=== PATIENT | female | born 1955 | race Caucasian/White ===

== ENCOUNTER → 2017-07-24 09:04 | Outpatient (CLI) | payer OTHER, SELFPAY ==
[2017-07-24 10:33] LABS: Anion Gap 8 (5-15); BUN 17 mg/dL (7-18); BUN/Creat Ratio 26.9 RATIO (10-20); Calcium,Total 9.2 mg/dL (8.5-10.1); Chloride 107 mmol/L (98-107); Creatinine, Serum 0.63 mg/dL (0.55-1.02); EST Glomerular Filtration Rate 102 mL/min (>60); Est Glom Filt Rate - Afr Amer 124 mL/min (>60); Glucose 111 mg/dL (74-106); Potassium 4.2 mmol/L (3.5-5.1); Sodium Level 143 mmol/L (136-145)
== END ==
PROVIDERS: Family Provider Family Medicine; PCP Family Medicine; Visit Provider Family Medicine
DX: E11.9 Type 2 diabetes mellitus without complications (principal)
CPT/HCPCS: 36415; 80048

== ENCOUNTER → 2018-04-01 10:01 | Outpatient (CLI) | payer OTHER, SELFPAY ==
--- NOTE | 2018-04-01 10:04 | BI_ITS ---
MAMMOGRAPHY - BILATERAL SCREENING REASON FOR EXAM: Female, 62 years old. Routine annual screening examination. PERTINENT HISTORY: Aunt with breast cancer. Prior bilateral stereotactic breast biopsies. TECHNIQUE: Digital bilateral breast cr (3D mammographic acquisition) in the CC and MLO projections. 2-D mediolateral oblique (MLO) and craniocaudad (CC) views of both breasts were obtained. CAD: Full Field Digital Mammography with Computer Added Detection was performed. COMPARISON: Comparison is made with prior examination dated April 16, 2016 and March 21, 2015. FINDINGS: Breast Composition: The breasts are heterogeneously dense, which may obscure small masses. There are no dominant masses or suspicious calcifications. Once again, 2 tissue markers are seen in the axillary region of the left breast. Stable scattered bilateral calcifications. No other significant abnormalities are identified. There has been no significant change since the prior study. BI/SCREENING MAMM (CAD), BILAT IMPRESSION: Stable bilateral screening mammogram. Yearly follow-up mammogram recommended. (A) ASSESSMENT CATEGORY: BIRADS Category 2: Benign. A letter regarding these results will be sent to the patient by the facility within 30 days. Approximately 10% of breast cancers are not detected by mammography. A normal mammogram should not delay biopsy of a clinically suspicious abnormality. [id number] Electronically Signed: Brandon Echeverria MD at 11:25 EST Tel [phone], Service support ,
== END ==
PROVIDERS: Family Provider Family Medicine; PCP Family Medicine; Referring Provider Family Medicine; Visit Provider Family Medicine
DX: Z12.31 Encounter for screening mammogram for malignant neoplasm of breast (principal)
CPT/HCPCS: 77063; 77067

== ENCOUNTER 2018-04-02 10:00 | Outpatient (RCR) | payer OTHER, SELFPAY ==
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
--- NOTE | 2018-02-13 10:57 | HP.PTREVAL_ITS ---
LELAND MANDEL, It has been my pleasure to treat BRIAN GRIFFIN over the last 10 visits for R femur fracture. Please see the progress note below for an update on the physical therapy plan of care! Subjective: Saw doctor and they are happy. New script for WBAT and gait training. Will f/u again 03/25. Pain level is 1/10 intermittently in medial and lateral R knee. Sleeping OK but hard to get back to sleep. Moved up stairs to real bedroom, going up stairs is OK with rail, down is nervous. Objective/Function: 0-94 AROM and 95 AAROM. Safe but slow gait with short L step length without AD and weakness apparent R hip. With cane walks well btu L step length still tends to be short. Strength in hip R tested at 4/5 and knee flexion 4- with no pain and knee extension 4- with pain. Tender adn tight over ITB. Unable to do steps with R LE still. OVERALL MUCH IMPROVEMENT AND TOLERATING INCREASED WB EX EXCELLENT. GOOD PROGNOSIS FOR CONTINUED IMPROVEMENT. Plan Plan: continue 3x/week for 4 weeks. 1. rollout/STM and stretch R ITB and continued knee flexion ROM. 2. Gait with cane and without cane as she is WBAT now. 3. strength progression R LE machines and functional to the steps as able. 4. ice if needed. Goals Goal 1:: 0-110 AROM R knee without increased pain Goal Time Frame: 4-6 Weeks Goal Progress: Progressing, approp. Goal 2:: Steps as allowed by WB status mod I. Goal Time Frame: 2-4 Weeks Goal Progress: with walker only. Goal 3:: Walk with cane without gait deviations in community safely adn confidently as allowed by WB status Goal Time Frame: 6-8 Weeks Goal Progress: Progressing Goal 4:: Pt feel 75% back to normal activity Goal Time Frame: 8-12 Weeks Goal 5:: Resume housework as tolerated Goal Time Frame: 4-6 Weeks Goal Progress: not yet. Anticipated Interventions Patient/Client Instruction: Educate patient on: Condition, Plan of Care For the Purpose of:: To decrease pain, To increase ROM, To improve nutrient delivery to tissue, To improve ability to perform ADL's Therapeutic Exercise to Include: Strength training, Flexibilty training, Gait and locomotor training, Passive ROM, Active ROM For the Purpose of:: To decrease pain, To decrease swelling/inflammation, To increase ROM, To improve nutrient delivery to tissue, To improve muscle performance and motor function, To improve ability to perform ADL's, To improve ability of physical actions for home/community/work/leisure, To improve gait and locomotor functions Manual Therapy Techniques to Include: Scar massage, Soft tissue mobilization For the Purpose of:: To increase ROM Cryotherapy (ice pack, ice massage): Yes For the Purpose of:: To decrease swelling/inflammation Please do not hesitate to contact me at [phone] by phone or Fax: if you have questions or concerns regarding this new plan of care! Sincerely, Charly Zhang, DPT, OC
--- NOTE | 2018-03-12 10:54 | HP.PTREVAL ---
LELAND MANDEL, It has been my pleasure to treat BRIAN GRIFFIN over the last 20 visits for R femur fracture. Please see the progress note below for an update on the physical therapy plan of care! Subjective: Hurt after workout walking through [employer] yesterday but that was unusual. Pain was laterally which is where it normally is if she hurts anymore. Sleep is still interrupted waking up at 1:30 but this is normal for her and not affected by pain. Driving and community walking going wella nd without cane. Activities pretty normal but slow. steps are still done with L foot descending , reciprocally up but needs hand rail. Has not hiked yet harish[place] sister in law is on vacation. But will try it soon.No more shower chair needed. Used cane one time when tired but otherwise it is done. Will continue gym ex in gym 3x/week. Objective/Function: 0-118 AROM R knee. 4/5 strength R quad and HS without pain. Gets discomfort and has difficlut time relaxing R ITB and quad lateralis. Walks well on floor I and can walk fast without increased pain. Volume walking on TM did cause some transient lateral pain. steps are reciprocal without rail ascending adn descending needs rail and hesitant to allow R knee to bend to lower eccentrically. Transfers are I. Stopp assisted and recovers I with good balance Plan Plan: f/u three weeks for balance, goals, steps descending and ITB check and D/C if doing well. Expect home stretching to help lateral pain and has fair prognosis. Goals Goal 1:: 0-110 AROM R knee without increased pain Goal Time Frame: 4-6 Weeks Goal Progress: Goal Met Goal 2:: Steps as allowed by WB status mod I. Goal Time Frame: 2-4 Weeks Goal Progress: Goal Met Goal 3:: Walk with cane without gait deviations in community safely adn confidently as allowed by WB status Goal Time Frame: 6-8 Weeks Goal Progress: Goal Met Goal 4:: Pt feel 75% back to normal activity Goal Time Frame: 8-12 Weeks Goal Progress: Goal Met Goal 5:: Resume housework as tolerated Goal Time Frame: 4-6 Weeks Goal Progress: Goal Met Goal 6:: Walk 10 minutes without noticing lateral pain in R knee Goal Time Frame: 2-4 Weeks Goal Progress: NEW GOAL Anticipated Interventions Patient/Client Instruction: Educate patient on: Condition, Plan of Care For the Purpose of:: To decrease pain, To increase ROM, To improve nutrient delivery to tissue, To improve ability to perform ADL's Therapeutic Exercise to Include: Strength training, Flexibilty training, Gait and locomotor training, Passive ROM, Active ROM For the Purpose of:: To decrease pain, To decrease swelling/inflammation, To increase ROM, To improve nutrient delivery to tissue, To improve muscle performance and motor function, To improve ability to perform ADL's, To improve ability of physical actions for home/community/work/leisure, To improve gait and locomotor functions Manual Therapy Techniques to Include: Scar massage, Soft tissue mobilization For the Purpose of:: To increase ROM Cryotherapy (ice pack, ice massage): Yes For the Purpose of:: To decrease swelling/inflammation Please do not hesitate to contact me at [phone] by phone or if you have questions or concerns regarding this new plan of care! Sincerely, Charly Zhang, JAIRO, OC
--- NOTE | 2018-04-02 10:44 | HP.PTDCSUM_ITS ---
HP - PT D/C Summary It has been my pleasure to treat BRIAN GRIFFIN under orders from LELAND MANDEL, for the diagnosis of R femur fracture for a total of 21 visit(s). Discharge Date: 04/02/18 Please see the following information for a summary of their discharge status. - Subjective Subjective: Doing well, been working out regularly and thinking about going to [employer] this year after all? Had x rays and is healing well. Pain level is 1/10 on most days. Medial patella get intermittent sharp stingy pain. Lateral crunches are improving at patella. ITB stretch is going OK. To doctor in May. Sleep is good, getting 8 hours. Basic ADLs are good. - Pain R thigh pain laterally/medially Pain Intensity (Out of 10): 3 R knee Pain Intensity (Out of 10): 1 - Overall Improvement % Improvement: 95 - Objective Objective/Function: 0-119 AROM, 123 passively.4/5 knee ext strength. good patellar mobility R slightly worse than L. Steps are reciprocal without rail ascending adn needs rail for confidence descending. Slightly weak R vs L but functional. Gait is good without antalgia today. Can step up onto 12 step with one rail assist. Blance is good - Goals Goal 1:: 0-110 AROM R knee without increased pain Goal Progress: Goal Met Goal 2:: Steps as allowed by WB status mod I. Goal Progress: Goal Met Goal 3:: Walk with cane without gait deviations in community safely adn confidently as allowed by WB status Goal Progress: Goal Met Goal 4:: Pt feel 75% back to normal activity Goal Progress: Goal Met Goal 5:: Resume housework as tolerated Goal Progress: Goal Met Goal 6:: Walk 10 minutes without noticing lateral pain in R knee Goal Progress: Goal Met - Plan Plan: D/C - D/C Information Discharge Comments: Pt to continue HEP and gym ex I and f/u doctor in May. Doing well If there are questions or concerns regarding this patient's physical therapy, please feel free to call me at [phone]. Thank you for the referral of this patient. Sincerely, Charly Zhang, DPT, OC
== END 2018-04-02 19:00 | disposition home or self-care (01) ==
LOC: PT 10:00
PROVIDERS: Family Provider Family Medicine; PCP Family Medicine
DX: Z98.890 Other specified postprocedural states (principal)
CPT/HCPCS: 97110; 97116; 97140; 97162; 97164; 97530

== ENCOUNTER → 2018-08-14 09:08 | Outpatient (CLI) | payer OTHER, SELFPAY ==
[2018-08-14 10:19] LABS: Microalbumin,Random Urine 10.6 mg/L (NO RANGE EST.); Microalbumin:Creatinine Ratio 10.5 mg/g CRE (<30 mg/g CRE)
[2018-08-14 10:33] LABS: Anion Gap 11 (5-15); BUN 17 mg/dL (7-18); BUN/Creat Ratio 24.1 RATIO (10-20); Calcium,Total 9.1 mg/dL (8.5-10.1); Chloride 105 mmol/L (98-107); Cholesterol 161 mg/dL (200); EST Glomerular Filtration Rate 90 mL/min (>60); Est Glom Filt Rate - Afr Amer 109 mL/min (>60); Glucose 94 mg/dL (74-106); High Density Lipoprotein 62 mg/dL; Potassium 4.1 mmol/L (3.5-5.1); Sodium Level 142 mmol/L (136-145); Triglycerides 70 mg/dL; Very Low Density Lipoprotein 14 mg/dL (5-40)
== END ==
PROVIDERS: Family Provider Family Medicine; PCP Family Medicine; Referring Provider Family Medicine; Visit Provider Family Medicine
DX: E11.9 Type 2 diabetes mellitus without complications (principal)
CPT/HCPCS: 36415; 80048; 80061; 82043; 82570

== ENCOUNTER → 2019-02-17 09:12 | Outpatient (CLI) | payer OTHER, SELFPAY ==
[2019-02-17 10:16] LABS: Anion Gap 8 (5-15); BUN 13 mg/dL (7-18); BUN/Creat Ratio 16.5 RATIO (10-20); Calcium,Total 9.7 mg/dL (8.5-10.1); Chloride 106 mmol/L (98-107); Cholesterol 148 mg/dL (200); Creatinine, Serum 0.79 mg/dL (0.55-1.02); EST Glomerular Filtration Rate 79 mL/min (>60); Est Glom Filt Rate - Afr Amer 95 mL/min (>60); Glucose 145 mg/dL (74-106); High Density Lipoprotein 52 mg/dL; Sodium Level 141 mmol/L (136-145); Triglycerides 110 mg/dL; Very Low Density Lipoprotein 22 mg/dL (5-40)
== END ==
PROVIDERS: Family Provider Family Medicine; PCP Family Medicine; Referring Provider Family Medicine; Visit Provider Family Medicine
DX: E11.9 Type 2 diabetes mellitus without complications (principal)
CPT/HCPCS: 36415; 80048; 80061

== ENCOUNTER → 2019-10-01 08:35 | Outpatient (CLI) | payer OTHER, SELFPAY ==
--- NOTE | 2019-10-01 08:38 | BI_ITS ---
MAMMOGRAPHY - BILATERAL SCREENING REASON FOR EXAM: Female, 64 years old. Routine annual screening examination. PERTINENT HISTORY: Aunt with breast cancer. Bilateral stereotactic breast biopsies. TECHNIQUE: Digital bilateral breast christine (3D mammographic acquisition) in the CC and MLO projections. 2-D mediolateral oblique (MLO) and craniocaudad (CC) views of both breasts were obtained. CAD: Full Field Digital Mammography with Computer Added Detection was performed. COMPARISON: Comparison is made with prior examination dated April 01, 2018 and April 16, 2016. FINDINGS: Breast Composition: The breasts are heterogeneously dense, which may obscure small masses. There are no dominant masses or suspicious calcifications. Once again, there are 2 tissue clip marker is in the left breast secondary to prior biopsies. Stable scattered bilateral calcifications. No other significant abnormalities are identified. There has been no significant change since the prior study. BI/SCREEN MAMM (CAD) W/CHRISTINE BILAT IMPRESSION: Stable bilateral screening mammogram. Yearly follow-up mammogram recommended. (A) ASSESSMENT CATEGORY: BIRADS Category 2: Benign. A letter regarding these results will be sent to the patient by the facility within 30 days. Approximately 10% of breast cancers are not detected by mammography. A normal mammogram should not delay biopsy of a clinically suspicious abnormality. [id number] Electronically Signed: Brandon Echeverria, at 9:34 EDT , Service support ,
== END ==
PROVIDERS: PCP Family Medicine; Referring Provider Family Medicine; Visit Provider Family Medicine
DX: Z12.31 Encounter for screening mammogram for malignant neoplasm of breast (principal); Z80.3 Family history of malignant neoplasm of breast
CPT/HCPCS: 77063; 77067

== ENCOUNTER → 2020-06-05 09:53 | Outpatient (CLI) | payer OTHER, SELFPAY ==
[2020-06-05 12:58] LABS: Anion Gap 7 (5-15); BUN 9 mg/dL (7-18); BUN/Creat Ratio 12.3 RATIO (10-20); Calcium,Total 9.3 mg/dL (8.5-10.1); Chloride 107 mmol/L (98-107); Creatinine, Serum 0.73 mg/dL (0.55-1.02); EST Glomerular Filtration Rate 85 mL/min (>60); Est Glom Filt Rate - Afr Amer 103 mL/min (>60); Glucose 112 mg/dL (74-106); Potassium 4.1 mmol/L (3.5-5.1); Sodium Level 140 mmol/L (136-145)
== END ==
PROVIDERS: PCP Family Medicine; Referring Provider Family Medicine; Visit Provider Family Medicine
DX: E11.9 Type 2 diabetes mellitus without complications (principal)
CPT/HCPCS: 36415; 80048

== ENCOUNTER 2020-12-18 06:40 | Emergency (ER) | payer OTHER, SELFPAY ==
[2020-12-18 06:40] VITALS: BP 160/89; PULSE 86; RESP 18; TEMP 36.7; O2SAT 96; BMI 21.4
--- NOTE | 2020-12-18 07:22 | CT_ITS ---
STUDY: CT ABDOMEN AND PELVIS WITH CONTRAST REASON FOR EXAM: Female, 65 years old. Abdominal pain -- IV PO Contrast RADIATION DOSAGE (If Supplied By Facility): CTDIvol = ( 8.74 ) mGy, DLP = ( 533.71 ) mGycm TECHNIQUE: Transaxial images were obtained from the dome of the diaphragm to the symphysis pubis with oral contrast. Oral and amp; IV Gastrografin and amp; 100mL Isovue-370 was administered. Sagittal and coronal images were reconstructed. Individualized dose optimization techniques were used for this CT. COMPARISON: None. FINDINGS: Minimal degree of dependent bibasilar atelectasis. The visualized portions of the heart are within normal limits. There is decreased attenuation of the liver consistent with steatosis. The patient is status post cholecystectomy. Mild degree of central intrahepatic biliary dilatation most likely secondary to the prior cholecystectomy. The common bile duct measures 1 cm in transverse dimension along its distal portion. There are multiple benign calcified granulomata of the spleen. Normal pancreas. Normal bilateral adrenal glands. Normal right kidney. There is a 1.6 cm cyst in the midportion of the left kidney. There is a moderate-sized hiatal hernia. Normal small intestine. Normal colon. The appendix is visualized and appears normal. There is scattered atherosclerotic calcification of the abdominal aorta, without a demonstrated aneurysm. Normal inferior vena cava. Normal retroperitoneum. Normal urinary bladder. There is absence of the uterus consistent with a prior hysterectomy. There is a left-sided inguinal hernia containing adipose tissue. Levoscoliosis. CT/Abdomen/Pelvis WITH Contrast IMPRESSION: Fatty infiltration of the liver. Status post cholecystectomy with mild degree of central intrahepatic biliary ductal dilatation. Left renal cyst. Moderate sized hiatal hernia. Small left inguinal hernia containing fat. Electronically Signed: Brandon Echeverria MD at 9:25 EDT , Service support ,
[2020-12-18 07:36] LABS: Absolute Lymphocyte Count 1.61 X10^3/uL (0.83-4.51); Absolute Neutrophil Count 3.7 X10^3/uL (2.0-7.7); Basophil# 0.03 X10^3/uL; Basophil% 0.5 % (0-1); Eosinophil# 0.11 X10^3/uL; Eosinophils% 1.9 % (0-5); Hematocrit 44.6 % (37-47); Hemoglobin 14.4 g/dL (12.0-15.0); Lymphocyte # 1.61 X10^3/ul (0.83-4.51); Lymphocyte % 27.2 % (19-41); Mean Corp Hgb Conc 32.3 g/dL (32-36); Mean Corpuscular Hgb 28.4 pg (27.0-32.0); Mean Platelet Vol. 10.9 fl (6.2-12.0); Monocyte# 0.42 X10^3/uL; Monocyte% 7.1 % (0-10); NRBC Flagged by Analyzer 0 % (0-5); Neutrophil # 3.72 X10^3/uL (2.7-7.7); Platelet Count 201 K/mm3 (150-450); RBC Distribution Width CV 13.3 % (11.6-14.6); RBC Distribution Width SD 42.6 fl (35.1-43.9); Red Blood Count 5.07 M/mm3 (4.2-5.4); White Blood Count 5.9 K/mm3 (4.4-11.0)
[2020-12-18] MEDS: 0.9% Normal Saline 1,000 ML 1000 ML IV (07:50)
[2020-12-18] MEDS: Ondansetron 4 MG/2 ML Vial IV (07:50)
[2020-12-18 07:51] LABS: ALB/GLOB Ratio 1.4 RATIO (0.9-2.4); AST(SGOT) 20 U/L (15-37); Alanine Aminotransfer ALT/SGPT 44 U/L (13-56); Albumin, Serum 4.5 g/dL (3.2-5.0); Alkaline Phosphatase 93 U/L (45-117); Anion Gap 6 (5-15); BUN 14 mg/dL (7-18); BUN/Creat Ratio 15.6 RATIO (10-20); Calcium,Total 9.5 mg/dL (8.5-10.1); Chloride 104 mmol/L (98-107); EST Glomerular Filtration Rate 67 mL/min (>60); Est Glom Filt Rate - Afr Amer 82 mL/min (>60); Estimated Creatinine Clearance 57.57 ml/min; Globulin 3.2 g/dL (2.2-4.2); Glucose 167 mg/dL (74-106); Lipase 116 U/L (73-393); Potassium 3.9 mmol/L (3.5-5.1); Protein, Total 7.7 g/dL (6.4-8.2); Sodium Level 140 mmol/L (136-145)
[2020-12-18 07:51] LABS: Bacteria 0 SEEN /hpf (None Seen); Mucous, Urine 0 SEEN /hpf (<or=2+); Red Blood Cells-Urine 0 SEEN /hpf (0-5)
[2020-12-18 07:56] LABS: Color, Urine Straw (Yellow); Glucose, Dipstick 1000 mg/dl (Normal); Ketone-Dipstick Negative (Negative); Leukocyte Esterase-Dipstick 25 /ul (Negative); Nitrite-Dipstick Negative (Negative); Occult Blood-Urine Negative /ul (Negative); Protein-Dipstick Negative (Negative); Urine Bilirubin Dipstick Negative (Negative); Urine Clarity Clear (Clear); Urine Urobilinogen Normal (Normal); Urine pH 6.5 (5.0 - 8.0)
[2020-12-18 08:02] LABS: Squamous Epithelial Cells - UA 0-5 SEEN /hpf (5-10); White Blood Cells 0-5 SEEN /hpf (0-5)
[2020-12-18] MEDS: Morphine 2 MG/ML Syringe IV (08:06)
[2020-12-18 08:44] VITALS: BP 135/72; PULSE 80; RESP 16; O2SAT 97
--- NOTE | 2020-12-18 09:41 | ED.VIS.GI ---
HPI HPI - GI History of Present Illness Chief Complaint: Nausea/Vomiting Informant: patient Abdominal Pain/Flank Pain Onset: Days (10) Context: Gradual Onset Timing: Continuous Quality: Burning Location: Epigastric, RUQ and LUQ Worsened by: Nothing Relieved by: Nothing Nausea/Vomiting/Emesis GI Symptom: Positive for Nausea and Vomiting Onset: Weeks (2) Diarrhea/Melena/Hematochezia GI Symptom: Negative for Diarrhea, Melena and Hematochezia Narrative Narrative: Patient presents with nausea and vomiting that has been getting worse over the past 2 weeks. Patient states that her primary care physician adjusted her insulin to 40 units at bedtime. Patient states that after this adjustment was made she started developing some nausea and vomiting that is worse at night. Patient states that she wakes up feeling like her blood sugar is low. Patient has some nausea and vomiting because of this. Patient states she is able to eat and drink to get her blood sugar back up. Patient states she has been having nausea throughout the day. Patient states she has been having difficulty eating because of the nausea. Patient states she has been having 2-3 episodes of vomiting per day. Patient denies any diarrhea, melena, or hematochezia. Patient denies any urinary complaints. Patient states she has some upper abdominal pain that is dull. [facility] Medical History (Updated 12/18/20 @ 10:[address] Charly Marquez, ) Diabetes FH: cholecystectomy History of left heart catheterization Home Medications lisinopril 10 mg PO DAILY 04/01/13 [History Last Taken 06/14/13] metformin 1,000 mg PO BIDCM 04/01/13 [History Last Taken 06/13/13] pantoprazole 20 mg PO DAILY 04/01/13 [History Last Taken 06/13/13] calcium carbonate-vitamin D3 [Caltrate-600 With Vit D Tab] 1 tab PO DAILY@0800 06/11/13 [History Last Taken 06/13/13] multivitamin with folic acid [Thera] 1 tab PO DAILY 06/11/13 [History Last Taken 06/13/13] atorvastatin 10 mg PO QHS 12/18/20 [History Last Taken Unknown] empagliflozin [Jardiance] 25 mg PO DAILY 12/18/20 [History Last Taken Unknown] insulin glargine [Lantus U-100 Insulin] 40 unit SUBCUT DAILY 12/18/20 [History Last Taken Unknown] ondansetron 4 mg PO Q8H PRN PRN #20 tab 12/18/20 [Rx Last Taken Unknown] ondansetron HCl [Zofran] 4 mg PO Q8H PRN 12/18/20 [History Last Taken Unknown] promethazine [Phenergan] 25 mg PO Q6H PRN 12/18/20 [History Last Taken Unknown] Allergy/AdvReac Type Severity Reaction Status Date / Time piperacillin sodium Allergy Rash Verified 04/01/13 00:30 [From Zosyn] Sulfa (Sulfonamide Allergy Rash Verified 04/01/13 00:30 Antibiotics) tazobactam sodium Allergy Rash Verified 04/01/13 00:30 [From Zosyn] Surgical History (Updated 12/18/20 @ 09:[address] Charly Marquez DO) H/O: hysterectomy History of cholecystectomy Social History Smoking Status: Never smoker ROS ROS ED Constitutional Constitutional ED: Denies chills or fever(s) Eyes Eyes: Denies blurry vision or change in vision ENT ENT ED: Denies rhinorrhea or sore throat Cardiovascular Cardiovascular: Denies chest pain or palpitations Respiratory/Chest Respiratory/Chest: Denies cough or dyspnea Gastrointestinal Gastrointestinal: Reports abdominal pain, nausea and vomiting Genitourinary Genitourinary ED: Denies dysuria or hematuria Musculoskeletal Musculoskeletal: Denies back pain or neck pain Integumentary Denies abscess or rash Neurologic Neurologic: Denies headache(s) or weakness Allergic/Immunologic Allergic/Immunologic ED: Denies mouth swelling or urticaria EXAM Physical Exam Const Vital Signs: 12/18/20 06:40 12/18/20 08:44 12/18/20 11:44 Temperature 98.0 F Temperature Source Oral Pulse Rate 86 80 82 Respiratory Rate 18 16 16 Blood Pressure 160/89 H 135/72 H 138/77 H Blood Pressure Mean 112 93 Pulse Ox 96 97 97 Oxygen Delivery Method Room Air Room Air Positive well nourished and well developed General Appearance ED: well developed HEENT Reports moist mucous membranes Neck supple and no JVD Resp normal respiratory effort and clear to auscultation bilaterally Cardio regular rate, regular rhythm and no murmurs GI normal to inspection, nondistended, normoactive bowel sounds and non-distended Auscultation: normoactive bowel sounds Palpation: soft and tender epigastric, LUQ and RUQ; Negative for guarding or rebound tenderness present Extremity normal to inspection General Extremety ED: Negative for edema or tenderness General Extremity: Negative for edema Neuro oriented x3, CN's II-XII intact bilaterally and no sensory deficits noted Sensorium / Orientation: alert Motor Exam: strength 5/5 throughout Psych mental status grossly normal Skin no rashes or lesions noted MDM MDM MDM Narrative Medical decision making narrative: Patient was given IV fluids, morphine, and Zofran. Patient is feeling better on reevaluation. CBC and comprehensive metabolic profile were within normal limits. Lipase was normal. Urinalysis was normal. CT scan of the abdomen and pelvis was obtained. There is no acute abnormality noted. There is fatty infiltration of the liver. There is a moderate-sized hiatal hernia. There is a left renal cyst. This was interpreted by the radiologist and reviewed by myself. Case was discussed with Dr. Berg who is covering for Dr. Rivera. He recommended decreasing the Lantus insulin to 35 units. Patient was given a prescription for Zofran. Patient was instructed to follow-up with Dr. Rivera in 5 to 7 days. Patient understood and was agreeable with the plan. All questions were answered. Lab Data Attestation: I reviewed the patient's lab results. Labs: Laboratory Results - last 24 hr 12/18/20 12/18/20 12/18/20 06:43 06:43 07:35 WBC 5.9 RBC 5.07 Hgb 14.4 Hct 44.6 MCV 88.0 MCH 28.4 MCHC 32.3 RDW Std Deviation 42.6 RDW Coeff of Mariaelena 13.3 Plt Count 201 MPV 10.9 Immature Gran % (Auto) 0.300 Neut % (Auto) 63.0 Lymph % (Auto) 27.2 King[place]isher % (Auto) 7.1 Eos % (Auto) 1.9 Baso % (Auto) 0.5 Absolute Neuts (auto) 3.7 Absolute Lymphs (auto) 1.61 Nucleated RBC % 0 Sodium 140 Potassium 3.9 Chloride 104 Carbon Dioxide 30.0 Anion Gap 6 BUN 14 Creatinine 0.90 Estim Creat Clear Calc 57.57 Est GFR (MDRD) Af Amer 82 Est GFR (MDRD) Non-Af 67 BUN/Creatinine Ratio 15.6 Glucose 167 H Calcium 9.5 Total Bilirubin 0.50 AST 20 ALT 44 Alkaline Phosphatase 93 Total Protein 7.7 Albumin 4.5 Globulin 3.2 Albumin/Globulin Ratio 1.4 Lipase 116 Urine Color Straw Urine Clarity Clear Urine pH 6.5 Ur Specific [place] 1.010 Urine Protein Negative Urine Glucose (UA) 1000 H Urine Ketones Negative Urine Occult Blood Negative Urine Nitrite Negative Urine Bilirubin Negative Urine Urobilinogen Normal Ur Leukocyte Esterase 25 H Urine RBC 0 SEEN Urine WBC 0-5 SEEN Ur Squamous Epith Cells 0-5 SEEN Urine Bacteria 0 SEEN Urine Mucus 0 SEEN Radiography Diagnostic Testing: Radiology Impression Abdomen/Pelvis CT 12/18/20 07:22 IMPRESSION: Fatty infiltration of the liver. Status post cholecystectomy with mild degree of central intrahepatic biliary ductal dilatation. Left renal cyst. Moderate sized hiatal hernia. Small left inguinal hernia containing fat. Electronically Signed: Brandon Echeverria MD at 9:25 EDT , Service support , Discharge Plan Triage Chief Complaint: Nausea/Vomiting ED Provider: Charly Marquez Dx/Rx/DC Orders Clinical Impression: Nausea and vomiting Instructions: ED Vomiting (Adult) Prescriptions: New ondansetron [ondansetron] 4 MG tablet 4 mg PO Q8H PRN PRN (Reason: Nausea) Qty: 20 RF: 0 No Action metformin 850 MG tablet 1,000 mg PO BIDCM RF: 0 pantoprazole 20 MG tablet 20 mg PO DAILY RF: 0 lisinopril 5 MG tablet 10 mg PO DAILY RF: 0 multivitamin with folic acid [Thera] 1 TABLET tablet 1 tab PO DAILY RF: 0 calcium carbonate-vitamin D3 [Caltrate with Vitamin D3] 1 TAB tablet 1 tab PO DAILY@0800 RF: 0 atorvastatin 10 mg Tablet 10 mg PO QHS RF: 0 ondansetron HCl [Zofran] 4 mg Tablet 4 mg PO Q8H PRN (Reason: Nausea) RF: 0 promethazine [Phenergan] 25 mg Tablet 25 mg PO Q6H PRN (Reason: Nausea) RF: 0 Lantus U-100 Insulin 100 unit/mL Cartridge 40 unit SUBCUT DAILY RF: 0 Jardiance 25 mg Tablet 25 mg PO DAILY RF: 0 Primary Care Provider: Kaden Rivera Referrals: Kaden Rivera MD [Primary Care Provider] - 5-7 Days Activity Restrictions/Additional Instructions: Decrease your Lantus insulin to 35 units. Disposition Disposition: Home, Self Care Discharge Date/Time: 12/18/20 11:46
[2020-12-18 11:44] VITALS: BP 138/77; PULSE 82; RESP 16; O2SAT 97
== END 2020-12-18 11:46 | disposition home or self-care (01) ==
PROVIDERS: Emergency Provider Emergency Medicine; PCP Family Medicine
DX: R11.2 Nausea with vomiting, unspecified (principal); R10.10 Upper abdominal pain, unspecified; E11.9 Type 2 diabetes mellitus without complications; Z79.4 Long term (current) use of insulin; Z79.899 Other long term (current) drug therapy; Z90.49 Acquired absence of other specified parts of digestive tract
CPT/HCPCS: 74177; 80053; 81001; 83690; 85025; 96361; 96374; 96375; 99282; J7030; Q9967; A4216; J2405

== ENCOUNTER 2021-07-24 08:01 | Outpatient (CLI) | payer BC, SELFPAY ==
--- NOTE | 2021-07-24 08:09 | BD_ITS ---
STUDY: DUAL ENERGY X-RAY ABSORPTIOMETRY / DXA REASON FOR EXAM: Female, 66 years old. [id number]. The patient is postmenopausal. TECHNIQUE: Bone Mineral Density (BMD) measurements of lumbar spine and left hip were obtained. COMPARISON: Comparison is made with prior study dated 04/16/2016. FINDINGS: Lumbar Spine (L1-L4): g/cm2 (0.667) / T-score (-3.5) / Z-score (-1.8) Findings are suggestive of osteoporosis with a high fracture risk. Left Femur Total: g/cm2 (0.677) / T-score (-2.2) / Z-score (-1.0) Left Femoral Neck: g/cm2 (0.499) / T-score (-3.2) / Z-score (-1.7) The T-Scores on the most recent prior examination were: Lumbar Spine (L1-L4): There has been worsening of bone density since the previous examination. Left Femur Total: which represents a worsening of 5.5%. BD/Dexa Bone Density Study IMPRESSION: The patient is considered osteoporotic as outlined below according to World Johnson Organization (WHO) criteria with a high fracture risk. There has been worsening of bone density since the previous examination. Reference Information: The T-score is the number of standard deviations above or below the standard which is normal for young adults at their peak bone mineral density. The World Health Organization (WHO) interprets the T-scores as follows: Above -1 Normal bone density Between -1 and -2.5 Osteopenia Equal to / or below -2.5 Osteoporosis As a practical clinical guideline, osteopenia may be graded as follows: Mild -1 through -1.5 Moderate -1.6 through -2.0 Severe -2.1 through -2.4 The Z-score is the number of standard deviations above or below age-matched controls. A Z-score of less than -1.5 would be considered abnormal. References: 1. NIH Osteoporosis and Related Bone Diseases www osteo.org 2. International Society for Clinical Densitometry www iscd.org 3. National Osteoporosis Foundation www nof.org Electronically Signed: Brandon Echeverria MD at 10:25 EST ,
== END 2021-07-24 23:59 | disposition home or self-care (01) ==
LOC: OPBD 08:03
PROVIDERS: PCP Family Medicine; Visit Provider Family Medicine
DX: Z00.00 Encounter for general adult medical examination without abnormal findings (principal); Z78.0 Asymptomatic menopausal state
CPT/HCPCS: 77080

== ENCOUNTER → 2021-09-13 | Outpatient (CLI) | payer BC, SELFPAY ==
[2021-09-13 10:27] LABS: ALB/GLOB Ratio 1.4 RATIO (0.9-2.4); AST(SGOT) 21 U/L (15-37); Alanine Aminotransfer ALT/SGPT 40 U/L (13-56); Albumin, Serum 3.8 g/dL (3.2-5.0); Alkaline Phosphatase 75 U/L (45-117); Anion Gap 6 (5-15); BUN 15 mg/dL (7-18); BUN/Creat Ratio 22.2 RATIO (10-20); Chloride 108 mmol/L (98-107); Cholesterol 125 mg/dL (200); Creatinine, Serum 0.68 mg/dL (0.55-1.02); EST Glomerular Filtration Rate 93 mL/min (>60); Est Glom Filt Rate - Afr Amer 113 mL/min (>60); Globulin 2.8 g/dL (2.2-4.2); Glucose 121 mg/dL (74-106); High Density Lipoprotein 46 mg/dL; Potassium 4.4 mmol/L (3.5-5.1); Protein, Total 6.6 g/dL (6.4-8.2); Sodium Level 142 mmol/L (136-145); Triglycerides 57 mg/dL; Very Low Density Lipoprotein 11 mg/dL (5-40)
[2021-09-13 10:29] LABS: Microalbumin,Random Urine 20.3 mg/L (NO RANGE EST.); Microalbumin:Creatinine Ratio 25.7 mg/g CRE (<30 mg/g CRE)
== END | disposition home or self-care (01) ==
LOC: MFPLAB 08:31
PROVIDERS: PCP Family Medicine; Referring Provider Family Medicine; Visit Provider Family Medicine
DX: E11.9 Type 2 diabetes mellitus without complications (principal)
CPT/HCPCS: 36415; 80053; 80061; 82043; 82570

== ENCOUNTER → 2021-12-07 | Outpatient (CLI) | payer BC, SELFPAY ==
[2021-12-07 10:26] LABS: Anion Gap 6 (5-15); BUN 15 mg/dL (7-18); BUN/Creat Ratio 20.4 RATIO (10-20); Calcium,Total 9.7 mg/dL (8.5-10.1); Chloride 103 mmol/L (98-107); Cholesterol 177 mg/dL (200); Creatinine, Serum 0.74 mg/dL (0.55-1.02); EST Glomerular Filtration Rate 84 mL/min (>60); Est Glom Filt Rate - Afr Amer 102 mL/min (>60); Glucose 136 mg/dL (74-106); High Density Lipoprotein 46 mg/dL; Potassium 4.2 mmol/L (3.5-5.1); Sodium Level 139 mmol/L (136-145); Triglycerides 108 mg/dL; Very Low Density Lipoprotein 22 mg/dL (5-40)
== END | disposition home or self-care (01) ==
LOC: MFPLAB 08:13
PROVIDERS: PCP Family Medicine; Referring Provider Family Medicine; Visit Provider Family Medicine
DX: E11.9 Type 2 diabetes mellitus without complications (principal)
CPT/HCPCS: 36415; 80048; 80061

== ENCOUNTER → 2022-07-08 | Outpatient (CLI) | payer MEDICARE, OTHER, SELFPAY ==
[2022-07-08 12:51] LABS: Anion Gap 7 (5-15); BUN 17 mg/dL (7-18); BUN/Creat Ratio 20.9 RATIO (10-20); Calcium,Total 9.1 mg/dL (8.5-10.1); Chloride 105 mmol/L (98-107); Cholesterol 141 mg/dL (200); Creatinine, Serum 0.82 mg/dL (0.55-1.02); EST Glomerular Filtration Rate 75 mL/min (>60); Est Glom Filt Rate - Afr Amer 91 mL/min (>60); Glucose 113 mg/dL (74-106); High Density Lipoprotein 46 mg/dL; Potassium 4.1 mmol/L (3.5-5.1); Sodium Level 139 mmol/L (136-145); Triglycerides 107 mg/dL; Very Low Density Lipoprotein 21 mg/dL (5-40)
== END | disposition home or self-care (01) ==
PROVIDERS: PCP Family Medicine; Referring Provider Family Medicine; Visit Provider Family Medicine
DX: I10 Essential (primary) hypertension (principal)
CPT/HCPCS: 36415; 80048; 80061

== ENCOUNTER → 2022-08-13 | Outpatient (CLI) | payer MEDICARE, OTHER, SELFPAY ==
--- NOTE | 2022-08-13 08:34 | BI_ITS ---
MAMMOGRAPHY - BILATERAL SCREENING REASON FOR EXAM: Female, 67 years old. Routine annual screening examination. PERTINENT HISTORY: Aunt with breast cancer. History of prior bilateral stereotactic breast biopsies. TECHNIQUE: Digital bilateral breast christine (3D mammographic acquisition) in the CC and MLO projections. 2-D mediolateral oblique (MLO) and craniocaudad (CC) views of both breasts were obtained. CAD: Full Field Digital Mammography with Computer Added Detection was performed. COMPARISON: Comparison is made with prior study October 01, 2019 and April 01, 2008. FINDINGS: Breast Composition: The breasts are heterogeneously dense, which may obscure small masses. There are no dominant masses or suspicious calcifications. New cluster microcalcifications seen in the deep upper lateral aspect of the left breast as compared to prior study. Biopsy recommended. 2 tissue markers are once again seen in the left breast. No other significant abnormalities are identified. BI/SCRN MAMM (CAD)W/CHRISTINE BILAT IMPRESSION: New cluster of microcalcifications in the deep upper lateral aspect of the left breast as compared to prior study. Biopsy recommended. ASSESSMENT CATEGORY: BIRADS Category 4: Suspicious - Biopsy Should Be Considered. A letter regarding these results will be sent to the patient by the facility within 30 days. Approximately 10% of breast cancers are not detected by mammography. A normal mammogram should not delay biopsy of a clinically suspicious abnormality. [id number] Electronically Signed: Brandon Echeverria MD at 9:30 EDT ,
== END | disposition home or self-care (01) ==
LOC: OPBI 08:32
PROVIDERS: PCP Family Medicine; Referring Provider Family Medicine; Visit Provider Family Medicine
DX: Z12.31 Encounter for screening mammogram for malignant neoplasm of breast (principal)
CPT/HCPCS: 77063; 77067

== ENCOUNTER → 2022-08-28 | Outpatient (CLI) | payer MEDICARE, OTHER, SELFPAY ==
--- NOTE | 2022-08-28 | BRBX_PTH ---
PATIENT: BRIAN GRIFFIN LOC: [facility] U#:[id number] AGE/SX: 67/F ROOM: RE08/28/[address]: Dr. David Brice MD : 1955 BED: DIS: 08/28/2022 SPEC #: [id number] RECD: 08/28/22 10:37 STATUS: ANGEL FREIRE #: [id number] SONG: 08/28/22 00:[address]: David Brice DEPT: SURGICAL PATHOLOGY RECD BY: Paco Remy ENTERED: 08/28/22 10:38 SP TYPE: BREAST BX OTHR DR: Dr. Kaden Rivera MD Tissues: Left breast, NOS Procedures: Surgery Specimen Level IV HEADER OPERATION: Left stereotactic breast biopsy PRE-OP DIAGNOSIS: Left deep upper lateral breast microcalcifications TISSUE SUBMITTED: Left breast core tissue ISCHEMIC TIME: 1 minute FIXATION TIME: 11 hours MICROSCOPIC DIAGNOSIS Left deep upper lateral breast microcalcifications, stereotactic core biopsy: Hyalinized fibroadenoma with focal calcifications. Negative for atypia or malignancy. See comment. WINSOME:james 08/29/2022 COMMENT Correlation with clinical, radiologic findings and appropriate follow up are necessary. MICROSCOPIC DESCRIPTION Slides are reviewed. GROSS DESCRIPTION Received is one container labeled with the patient's name and not further designated. The specimen consists of multiple irregular fragments of escobedo-yellow soft tissue that in aggregate measure 3.5 x 2.0 x 0.2 cm. The specimen is totally submitted in one cassette. / AM:james 08/28/2022 TC:1 CPT: 88537
--- NOTE | 2022-08-28 08:14 | PCM.HP.BLA ---
History and Physical Date of Admission: 08/28/22 Visit Reasons:?Birads 4 L Cluster of Microcalcifications Allergies piperacillin sodium [From Zosyn] Allergy (Verified 04/01/13 00:30) RashSulfa (Sulfonamide Antibiotics) Allergy (Verified 04/01/13 00:30) Rashtazobactam sodium [From Zosyn] Allergy (Verified 04/01/13 00:30) Rash Medications lisinopril 5 mg tablet 10 mg PO DAILY 04/01/13 [History Confirmed 12/18/20] metformin 850 mg tablet 1,000 mg PO BIDCM 04/01/13 [History Confirmed 12/18/20] pantoprazole 20 mg tablet,delayed release 20 mg PO DAILY 04/01/13 [History Confirmed 12/18/20] calcium carbonate 600 mg-vitamin D3 20 mcg (800 unit) tablet (Caltrate with Vitamin D3) 1 tab PO DAILY@0800 06/11/13 [History Confirmed 12/18/20] multivitamin with folic acid 400 mcg tablet (Thera) 1 tab PO DAILY 06/11/13 [History Confirmed 12/18/20] atorvastatin 10 mg tablet 10 mg PO QHS 12/18/20 [History Confirmed 12/18/20] empagliflozin 25 mg tablet (Jardiance) 25 mg PO DAILY 12/18/20 [History Confirmed 12/18/20] insulin glargine 100 unit/mL subcutaneous cartridge 40 unit subcut DAILY 12/18/20 [History Confirmed 12/18/20] ondansetron 4 mg disintegrating tablet 4 mg PO Q8H PRN PRN Nausea #20 tabs 12/18/20 [Rx] ondansetron HCl 4 mg tablet (Zofran) 4 mg PO Q8H PRN Nausea 12/18/20 [History Confirmed 12/18/20] PFSH Medical History?(Updated 08/20/22 @ 06:[address] David Brice MD) Diabetes FH: cholecystectomy History of left heart catheterization Surgical History?(Updated 12/18/20 @ 09:[address] Charly Marquez DO) H/O: hysterectomy History of cholecystectomy Social History? Smoking Status:? Never smoker HPI HPI HPI: [id number] female referred by Dr. Kaden Rivera for surgical consultation regarding an abnormal mammogram.? The patient has had most recent mammograms done at the [facility] on August 13, 2022.? There is felt to be a new cluster of microcalcifications seen in the deep upper outer aspect of the left breast.? 2 previous biopsy clips are noted in the left breast.? BI-RADS Category 4.? I have personally reviewed those images.? Although there were calcifications in that general location on her previous images of October 01, 2019 there appeared to be more currently and they are pleomorphic.? This is located quite deeply in the breast. The patient has a history of stereotactic core biopsy left breast March 10, 2006 and right breast February 2003 and right breast 1994 67-year-old female.? Medicaid is 12.? G0.? As noted above 3 remote breast biopsies all benign.? Family history a paternal aunt had breast cancer.? The patient's not been on any. She does have type 2 diabetes.? Hemoglobin A1c has been 7.4 slightly higher than what Dr. Kaden Rivera would want however the patient has had trouble with variability in her blood sugars and she thinks has had some emotional stresses perhaps related to hypoglycemia. August 13, 2022 MAMMOGRAPHY - BILATERAL SCREENING REASON FOR EXAM:? ? Female, 67 years old.? Routine annual screening examination. PERTINENT HISTORY:? Aunt with breast cancer. History of prior bilateral stereotactic breast biopsies. TECHNIQUE: ? Digital bilateral breast christine (3D mammographic acquisition) in the CC and MLO projections. 2-D mediolateral oblique (MLO) and craniocaudad (CC) views of both breasts were obtained.? CAD: Full Field Digital Mammography with Computer Added Detection was performed. COMPARISON: ? Comparison is made with prior study October 01, 2019 and April 01, 2008. FINDINGS: Breast Composition:? The breasts are heterogeneously dense, which may obscure small masses. There are no dominant masses or suspicious calcifications. New cluster microcalcifications seen in the deep upper lateral aspect of the left breast as compared to prior study. Biopsy recommended. 2 tissue markers are once again seen in the left breast. No other significant abnormalities are identified. BI/SCRN MAMM (CAD)W/CHRISTINE BILAT IMPRESSION: New cluster of microcalcifications in the deep upper lateral aspect of the left breast as compared to prior study. Biopsy recommended. ? ? ASSESSMENT CATEGORY: BIRADS Category 4:? Suspicious - Biopsy Should Be Considered.? A letter regarding these results will be sent to the patient by the facility within 30 days. ? Approximately 10% of breast cancers are not detected by mammography.? A normal mammogram should not delay biopsy of a clinically suspicious abnormality. ? [id number] ? Electronically Signed: Brandon Echeverria MD at 9:30 EDT Reading Location ID and State: [facility] / [place] , Service support? , ROS General General: No weight change, appetite, fatigue, colon cancer, breast cancer or weakness HEENT HEENT: No difficulty swallowing, eye injury, eye surgery, swollen glands or hoarseness Endo Endocrine: Yes diabetes mellitus; No thyroid disease, thyroid cancer, Hair loss, heat intolerance or cold intolerance Skin Skin: No rash or changing moles Breast Breast: Yes abnormal mammogram; No left breast lump, right breast lump, nipple discharge, breast pain, abnormal US or breast enlargement Musc Musculoskeletal: No back problems, arthritis, rheumatoid arthritis, gout or joint pain Cardio Cardiovascular: Yes high blood pressure; No murmur, pacemaker, heart disease, atrial fibrillation, heart attack, heart stent, palpitations, shortness of breat with exertion or chest pain Psych Psychiatric: No depression, anxiety or hearing voices Resp Respiratory: No shortness of breath, No sleep apnea, No cough, No COPD, No asthma, No emphysema and No wheezing Gastro Gastrointestinal: No abdominal pain, No nausea or vomiting, No diarrhea, No constipation, No blood in stool, Yes acid reflux, No hemorrhoids, No ulcers, Yes gallbladder problem and No black,tarry stools José Hematologic: No blood thinners, No blood disorders, No bleeding, No anemia and No blood clots Neuro Neurologic: No system reviewed and no additional complaints, except as documented, No as per HPI, No abnormal gait, No abnormal hearing, No abnormal movements, No abnormal speech, No behavioral changes, No burning sensations, No confusion, No convulsions, No disequilibrium, No dizziness, No localized weakness, No frequent falls, No headache(s), No lack of coordination, No loss of vision, No memory loss, No numbness, No other visual disturbances, No radicular pain, No restless legs, No sensory deficit, No syncope, No tingling, No tremor(s), No weakness and No other Assessment and Plan Assessment and Plan (1) Abnormal mammogram of left breast: ?Status:?Acute Plan I recommended the patient a stereotactic needle core biopsy upper outer deep left breast.? We deferred a physical exam today based upon the imaging/her consideration.? She is aware of the technique, benefit, risk, alternatives.? She has had an opportunity ask and have questions answered.? We will schedule and expedite her care.? I very much appreciate the kind option of assisting with her surgical management. Copy: Dr. Kaden Rivera and Dr. Lianet Brice M.D., F.A.C.S I have examined the patient and the H&P has been reviewed. There are no clinical changes since date of exam. David Brice M.D., F.A.C.S.
--- NOTE | 2022-08-28 08:48 | PCM.OPRPT ---
Report of Operation Date of Procedure: 08/28/22 Pre-Operative Diagnosis: Microcalcifications outer left breast Post-Operative Diagnosis: Same Surgery/Procedure Performed:: Stereotactic needle core biopsy outer left breast Description of Surgical Findings:: Timeout informed consent was obtained. 67-year-old female was taken to the mammography suite placed prone on the table the left breast was placed in a cc view the microcalcifications in question were identified stereotactic images were obtained digital information obtained on a single target site the breast was prepped with Betadine 1% lidocaine was used as a local anesthetic a total of 15 cc was used small stab incision was created 8 gauge resolved needle was advanced to prefire depth prefire films were obtained demonstrating adequate localization 6 cores were obtained. Radiographic images of the cores were obtained showing multiple cores with microcalcifications. A butterfly clip was left in position. On fast view demonstrated good positioning. She was released from the device pressure was held for hemostasis. Steri-Strip Telfa OpSite dressing applied. The specimens were immediately transferred to formalin for analysis. She was given activity wound care instructions. Final pathology pending. Blood loss minimal. David Brice M.D., F.A.C.S. Surgeon: David Brice Type of Anesthesia: Local
== END | disposition home or self-care (01) ==
LOC: BIRAD 08:00
PROVIDERS: PCP Family Medicine; Visit Provider Surgery
DX: D24.2 Benign neoplasm of left breast (principal); Z79.4 Long term (current) use of insulin; E11.9 Type 2 diabetes mellitus without complications; R92.0 Mammographic microcalcification found on diagnostic imaging of breast; I10 Essential (primary) hypertension; Z79.84 Long term (current) use of oral hypoglycemic drugs; Z79.899 Other long term (current) drug therapy
CPT/HCPCS: 19081; 88305; J7050

== ENCOUNTER → 2023-04-09 | Outpatient (CLI) | payer MEDICARE, OTHER, SELFPAY ==
[2023-04-09 10:44] LABS: Microalbumin,Random Urine 18.5 mg/L (NO RANGE EST.)
[2023-04-09 10:53] LABS: Anion Gap 7 (5-15); BUN 13 mg/dL (7-18); BUN/Creat Ratio 17.9 RATIO (10-20); Calcium,Total 8.9 mg/dL (8.5-10.1); Chloride 108 mmol/L (98-107); Cholesterol 212 mg/dL (200); Creatinine, Serum 0.73 mg/dL (0.55-1.02); EST Glomerular Filtration Rate 85 mL/min (>60); Est Glom Filt Rate - Afr Amer 103 mL/min (>60); Glucose 93 mg/dL (74-106); High Density Lipoprotein 50 mg/dL; Potassium 3.8 mmol/L (3.5-5.1); Sodium Level 140 mmol/L (136-145); Triglycerides 108 mg/dL; Very Low Density Lipoprotein 22 mg/dL (5-40)
== END | disposition home or self-care (01) ==
LOC: MTLAB 08:46
PROVIDERS: PCP Family Medicine; Referring Provider Family Medicine; Visit Provider Family Medicine
DX: I10 Essential (primary) hypertension (principal); E11.9 Type 2 diabetes mellitus without complications; E78.5 Hyperlipidemia, unspecified
CPT/HCPCS: 36415; 80048; 80061; 82043; 82570

== ENCOUNTER → 2023-10-24 | Outpatient (CLI) | payer MEDICARE, OTHER, SELFPAY ==
[2023-10-24 10:54] LABS: ALB/GLOB Ratio 1.1 RATIO (0.9-2.4); AST(SGOT) 26 U/L (15-37); Alanine Aminotransfer ALT/SGPT 39 U/L (13-56); Albumin, Serum 3.6 g/dL (3.2-5.0); Alkaline Phosphatase 71 U/L (45-117); Anion Gap 7 (5-15); BUN 23 mg/dL (7-18); BUN/Creat Ratio 33.2 RATIO (10-20); Calcium,Total 9.1 mg/dL (8.5-10.1); Chloride 106 mmol/L (98-107); Cholesterol 138 mg/dL (200); Creatinine, Serum 0.69 mg/dL (0.55-1.02); EST Glomerular Filtration Rate 90 mL/min (>60); Est Glom Filt Rate - Afr Amer 109 mL/min (>60); Globulin 3.4 g/dL (2.2-4.2); Glucose 111 mg/dL (74-106); High Density Lipoprotein 44 mg/dL; Potassium 4.2 mmol/L (3.5-5.1); Sodium Level 140 mmol/L (136-145); Triglycerides 91 mg/dL; Very Low Density Lipoprotein 18 mg/dL (5-40)
== END | disposition home or self-care (01) ==
LOC: MTLAB 07:46
PROVIDERS: PCP Family Medicine; Referring Provider Family Medicine; Visit Provider Family Medicine
DX: E11.9 Type 2 diabetes mellitus without complications (principal)
CPT/HCPCS: 36415; 80053; 80061

== ENCOUNTER → 2024-03-01 | Outpatient (CLI) | payer MEDICARE, OTHER, SELFPAY ==
--- NOTE | 2024-03-01 08:32 | BI_ITS ---
MAMMOGRAPHY - BILATERAL SCREENING REASON FOR EXAM: Female, 68 years old. Routine annual screening examination. PERTINENT HISTORY: Aunt with breast cancer. History of bilateral stereotactic breast biopsies. TECHNIQUE: Digital bilateral breast christine (3D mammographic acquisition) in the CC and MLO projections. 2-D mediolateral oblique (MLO) and craniocaudad (CC) views of both breasts were obtained. CAD: Full Field Digital Mammography with Computer Added Detection was performed. COMPARISON: Comparison is made with prior study August 13, 2022 and October 01, 2019. FINDINGS: Breast Composition: The breasts are heterogeneously dense, which may obscure small masses. There are no dominant masses or suspicious calcifications. Stable appearance of the microcalcifications. 2 tissue markers are seen in the left breast in the axillary region. No other significant abnormalities are identified. There has been no significant change since the prior study. BI/SCRN MAMM (CAD)W/CHRISTINE BILAT IMPRESSION: Stable bilateral screening mammogram. Yearly follow-up mammogram recommended. (A) ASSESSMENT CATEGORY: BIRADS Category 2: Benign. A letter regarding these results will be sent to the patient by the facility within 30 days. Approximately 10% of breast cancers are not detected by mammography. A normal mammogram should not delay biopsy of a clinically suspicious abnormality. [id number] Electronically Signed: Brandon Echeverria MD at 9:39 EDT ,
== END | disposition home or self-care (01) ==
LOC: OPBI 08:30
PROVIDERS: PCP Family Medicine; Referring Provider Family Medicine; Visit Provider Family Medicine
DX: Z12.31 Encounter for screening mammogram for malignant neoplasm of breast (principal)
CPT/HCPCS: 77063; 77067

== ENCOUNTER → 2024-04-19 | Outpatient (CLI) | payer MEDICARE, OTHER, SELFPAY ==
[2024-04-19 13:38] LABS: ALB/GLOB Ratio 1.2 RATIO (0.9-2.4); AST(SGOT) 28 U/L (15-37); Alanine Aminotransfer ALT/SGPT 40 U/L (13-56); Albumin, Serum 3.8 g/dL (3.2-5.0); Alkaline Phosphatase 71 U/L (45-117); Anion Gap 7 (5-15); BUN 11 mg/dL (7-18); BUN/Creat Ratio 15.3 RATIO (10-20); Calcium,Total 9.2 mg/dL (8.5-10.1); Chloride 108 mmol/L (98-107); Cholesterol 133 mg/dL (200); Creatinine, Serum 0.72 mg/dL (0.55-1.02); EST Glomerular Filtration Rate 86 mL/min (>60); Est Glom Filt Rate - Afr Amer 105 mL/min (>60); Globulin 3.2 g/dL (2.2-4.2); Glucose 118 mg/dL (74-106); High Density Lipoprotein 41 mg/dL; Potassium 4.3 mmol/L (3.5-5.1); Sodium Level 141 mmol/L (136-145); Triglycerides 88 mg/dL; Very Low Density Lipoprotein 18 mg/dL (5-40)
== END | disposition home or self-care (01) ==
LOC: MFPLAB 09:39
PROVIDERS: PCP Family Medicine; Visit Provider Family Medicine
DX: G25.0 Essential tremor (principal); E11.9 Type 2 diabetes mellitus without complications
CPT/HCPCS: 36415; 80053; 80061

== ENCOUNTER → 2024-07-26 | Outpatient (CLI) | payer MEDICARE, OTHER, SELFPAY ==
[2024-07-26 13:32] LABS: Microalbumin,Random Urine < 12.0 mg/L (NO RANGE EST.); Microalbumin:Creatinine Ratio UNABLE TO CALCULATE mg/g CRE
[2024-07-26 14:14] LABS: Cholesterol 131 mg/dL (<=200); High Density Lipoprotein 42 mg/dL; Low Density Lipoprotein Calc. 70 mg/dL; Triglycerides 93 mg/dL; Very Low Density Lipoprotein 19 mg/dL (5-40)
[2024-07-26 15:08] LABS: ALB/GLOB Ratio 1.7 RATIO (0.9-2.4); AST(SGOT) 38 U/L (<=31); Alanine Aminotransfer ALT/SGPT 38 U/L (<=34); Alkaline Phosphatase 70 U/L (35-104); Anion Gap 13 (5-15); BUN 15 mg/dL (4-19); BUN/Creat Ratio 21.7 RATIO (10-20); Calcium 9.2 mg/dL (7.6-11.0); Carbon Dioxide 22.3 mmol/L (22.0-29.0); Chloride 105 mmol/L (96-108); Creatinine, Serum 0.67 mg/dL (0.70-1.20); EST Glomerular Filtration Rate 96 (>60); Globulin 2.4 g/dL (2.2-4.2); Glucose 85 mg/dL (70-99); Potassium 4.3 mmol/L (3.3-5.1); Protein, Total 6.4 g/dL (5.9-8.4); Sodium Level 141 mmol/L (133-145); Total Bilirubin 0.32 mg/dL (0.00-1.30)
== END | disposition home or self-care (01) ==
LOC: MFPLAB 09:34
PROVIDERS: PCP Family Medicine; Referring Provider Family Medicine; Visit Provider Family Medicine
DX: I10 Essential (primary) hypertension (principal); E11.9 Type 2 diabetes mellitus without complications
CPT/HCPCS: 36415; 80053; 80061; 82043; 82570

== ENCOUNTER → 2025-01-31 | Outpatient (CLI) | payer MEDICARE, OTHER, SELFPAY ==
[2025-01-31 11:00] LABS: AST(SGOT) 22 U/L (<=31); Alanine Aminotransfer ALT/SGPT 22 U/L (<=34); Albumin, Serum 4.1 g/dL (3.4-4.8); Alkaline Phosphatase 75 U/L (35-104); Anion Gap 11 (5-15); BUN 13 mg/dL (4-19); BUN/Creat Ratio 21.3 RATIO (10-20); Calcium,Total 9.2 mg/dL (7.6-11.0); Carbon Dioxide 23.7 mmol/L (21.0-32.0); Chloride 105 mmol/L (98-108); Cholesterol 110 mg/dL (<=200); Globulin 2.5 g/dL (2.2-4.2); Glucose 97 mg/dL (70-99); Low Density Lipoprotein Calc. 53 mg/dL; Potassium 4.2 mmol/L (3.3-5.1); Triglycerides 90 mg/dL; Very Low Density Lipoprotein 18 mg/dL (5-40); cholesterol:hdl ratio screen 2.80
== END | disposition home or self-care (01) ==
LOC: MFPLAB 09:04
PROVIDERS: PCP Family Medicine; Visit Provider Family Medicine
DX: E11.9 Type 2 diabetes mellitus without complications (principal)
CPT/HCPCS: 36415; 80053; 80061